=== PATIENT | female | born 1995 | race Caucasian/White ===

== ENCOUNTER 2023-03-20 15:48 | Emergency (ER) | payer SELFPAY ==
--- NOTE | 2023-03-20 16:06 | ER ---
Nurse's Notes [facility] Name: Clover Irizarry Age: 27 yrs Sex: Female : 1995 Arrival Date: 03/20/2023 Time: 15:48 Bed Waiting Private MD: Diagnosis: Allergic urticaria Presentation: 03/20 16:03 Chief complaint: Itchy rash on face x 3 days. Coronavirus screen: At this time, the hb client does not indicate any symptoms associated with coronavirus-19. Ebola Screen: No symptoms or risks identified at this time. Initial Sepsis Screen: Does the patient meet any 2 criteria? No. Patient's initial sepsis screen is negative. Does the patient have a suspected source of infection? No. Patient's initial sepsis screen is negative. Risk Assessment: Do you want to hurt yourself or someone else? Patient reports no desire to harm self or others. Onset of symptoms was March 17, 2023. 16:03 Method Of Arrival: Ambulatory hb 16:03 Acuity: RACHEAL 4 hb Triage Assessment: 16:04 General: Appears in no apparent distress. Behavior is calm, cooperative. Pain: Pain hb currently is 1 out of 10 on a pain scale. Neuro: Level of Consciousness is awake, alert, obeys commands, Oriented to person, place, time, situation. Cardiovascular: Patient's skin is warm and dry. Respiratory: Respiratory effort is even, unlabored, Respiratory pattern is regular, symmetrical. Historical: - Allergies: 16:04 No Known Allergies; hb - PMHx: 16:04 None; hb - PSHx: 16:04 section; hb - Immunization history:: Adult Immunizations up to date. - Social history:: Smoking status: Patient reports the use of cigarette tobacco products, smokes one-half pack cigarettes per day. Screenin:[address] [facility] ED Fall Risk Assessment (Adult) Score/Fall Risk Level 0 - 2 = Low Risk hb Oriented to surroundings, Maintained a safe environment, Educated pt \T\ family on fall prevention, incl call for assistance when getting out of bed. Abuse screen: Denies threats or abuse. Denies injuries from another. Nutritional screening: No deficits noted. Tuberculosis screening: No symptoms or risk factors identified. Assessment: 16:05 General: See triage assessment . hb Vital Signs: 16:03 BP 136 / 80; Pulse 74; Resp 16; Temp 97.7; Pulse Ox 100% on R/A; Weight 65.77 kg; hb Height 5 ft. 3 in. ; Pain /10; 16:03 Body Mass Index 25.69 (65.77 kg, 160.02 cm) hb 16:03 Pain Scale: Adult hb ED Course: 15:49 Patient arrived in ED. ts1 15:51 Panfilo Wayne PA is PHCP. cp 15:51 Rolo Palomares DO is Attending Physician. cp 16:04 Triage completed. hb 16:04 Arm band placed on left wrist. hb 16:06 Patient has correct armband on for positive identification. hb 16:19 No provider procedures requiring assistance completed. Patient did not have IV access hb during this emergency room visit. Administered Medications: 16:19 Drug: Famotidine PO 20 mg Route: PO; hb 16:19 Follow up: Response: Medication administered at discharge. hb 16:19 Drug: predniSONE PO 60 mg Route: PO; hb 16:19 Follow up: Response: Medication administered at discharge. hb Medication: 16:04 VIS not applicable for this client. hb Outcome: 16:06 Discharge ordered by MD. cp 16:19 Discharged to home ambulatory. hb 16:19 Condition: stable 16:19 Discharge instructions given to patient, Instructed on discharge instructions, follow up and referral plans. medication usage, Demonstrated understanding of instructions, follow-up care, medications, Prescriptions given X 3. 16:20 Patient left the ED. hb Signatures: Panfilo Wayne PA PA cp Lisa Long RN RN Arcelia Bhakta PAS PAS ts1 Corrections: (The following items were deleted from the chart) 16:04 16:04 PSHx: None; hb hb
--- NOTE | 2023-03-20 16:06 | EDPHYS ---
Physician Documentation [facility] Name: Clover Irizarry Age: 27 yrs Sex: Female : 1995 Arrival Date: 03/20/2023 Time: 15:48 Bed Waiting Private MD: ED Physician Rolo Palomares HPI: 03/20 16:02 This 27 yrs old Female presents to ER via Unassigned with complaints of Rash. cp 16:02 The patient's rash thought to be caused by an unknown cause. The rash is located on the cp face and chest. The rash can be described as urticarial. 16:02 Associated signs and symptoms: Pertinent positives: burning sensation, itching, cp Pertinent negatives: difficulty breathing, fever, swelling of lips, swelling of throat, swelling of tongue. 16:02 Severity of symptoms: in the emergency department the symptoms are unchanged. cp Historical: - Allergies: 16:04 No Known Allergies; hb - PMHx: 16:04 None; hb - PSHx: 16:04 section; hb - Immunization history:: Adult Immunizations up to date. - Social history:: Smoking status: Patient reports the use of cigarette tobacco products, smokes one-half pack cigarettes per day. ROS: 16:03 Constitutional: Negative for fever. cp 16:03 Eyes: Positive for blurry vision, itching. 16:03 Abdomen/GI: Negative for vomiting, diarrhea, constipation. 16:03 Skin: Positive for rash, diffusely. 16:03 ENT: Negative for drainage from ear(s), ear pain, rhinorrhea, sore throat, difficulty cp swallowing, difficulty handling secretions. 16:03 Cardiovascular: Negative for chest pain. 16:03 Respiratory: Negative for cough, shortness of breath, wheezing. 16:03 Neuro: Negative for altered mental status, dizziness, headache, weakness. cp 16:03 All other systems are negative. Exam: 16:04 Constitutional: The patient appears in no acute distress, alert, awake, non-toxic, well cp developed, well nourished. 16:04 Eyes: Periorbital structures: appear normal, Conjunctiva: normal, no exudate, no injection, Sclera: no appreciated abnormality, Lids and lashes: appear normal, bilaterally. 16:04 ENT: External ear(s): are unremarkable, Nose: is normal, Mouth: Lips: moist, Oral mucosa: pink and intact, moist. 16:04 Cardiovascular: Rate: normal. 16:04 Respiratory: the patient does not display signs of respiratory distress, Respirations: normal, no use of accessory muscles, no retractions, labored breathing, is not present. 16:04 Skin: rash can be described as urticarial, and is diffusely located. Vital Signs: 16:03 BP 136 / 80; Pulse 74; Resp 16; Temp 97.7; Pulse Ox 100% on R/A; Weight 65.77 kg; hb Height 5 ft. 3 in. ; Pain 1/10; 16:03 Body Mass Index 25.69 (65.77 kg, 160.02 cm) hb 16:03 Pain Scale: Adult hb MDM: 16:03 Differential diagnosis: allergic reaction, cellulitis, scabies, hives. cp 16:06 Patient medically screened. cp 16:06 Data reviewed: vital signs, nurses notes. cp 16:06 I considered the following discharge prescriptions or medication management in the cp emergency department Medications were administered in the Emergency Department. See MAR. Counseling: I had a detailed discussion with the patient and/or guardian regarding: the historical points, exam findings, and any diagnostic results supporting the discharge/admit diagnosis, to return to the emergency department if symptoms worsen or persist or if there are any questions or concerns that arise at home. Response to treatment: the patient's symptoms have mildly improved after treatment, and as a result, I will discharge patient. Administered Medications: 16:19 Drug: Famotidine PO 20 mg Route: PO; hb 16:19 Follow up: Response: Medication administered at discharge. hb 16:19 Drug: predniSONE PO 60 mg Route: PO; hb 16:19 Follow up: Response: Medication administered at discharge. hb Disposition: 16:15 Chart complete. cp 20:15 Co-signature as Attending Physician, Rolo Palomares DO I was immediately available on-site ms3 in the Emergency Department for consultation in the care of the patient. Disposition Summary: 03/20/23 16:06 Discharge Ordered Location: Home cp Problem: new cp Symptoms: have improved cp Condition: Stable cp Diagnosis - Allergic urticaria cp Followup: cp - With: Private Physician - When: 2 - 3 days - Reason: Worsening of condition Discharge Instructions: - Discharge Summary Sheet cp - Allergies, Adult cp Forms: - Medication Reconciliation Form cp - Thank You Letter cp - Antibiotic Education cp - Prescription Opioid Use cp Prescriptions: - Vistaril 25 mg Oral capsule - take 2 capsule by ORAL route At bedtime As needed as needed for itching; 20 cp capsule; Refills: 0, Product Selection Permitted - Pepcid 20 mg Oral Tablet - take 1 tablet by ORAL route every 12 hours for 10 days; 20 tablet; Refills: 0, cp Product Selection Permitted - Prednisone 20 mg Oral Tablet - take 2 tablets by ORAL route once daily for 5 days then 1 tablet daily for 3 cp days and then 1/2 tablet daily for 2 days; 14 tablet; Refills: 0, Product Selection Permitted Signatures: Panfilo Wayne PA PA cp Baxter, Heather, RN RN Rolo Garcia DO DO ms3 Corrections: (The following items were deleted from the chart) 16:04 16:04 PSHx: None; [facility]
[2023-03-20] MEDS ORDERED: predniSONE 20 MG TAB ONE (16:22)
[2023-03-20] MEDS ORDERED: FAMOTIDINE 20 MG TAB ONE (16:22)
[2023-03-20 16:34] VITALS: BP 136/80; TEMP 97.7; O2SAT 100
== END 2023-03-20 16:20 | disposition home or self-care (01) ==
LOC: ER 15:48
DX: L50.0 Allergic urticaria (principal)
CPT/HCPCS: 99283; J7512